=== PATIENT | female | born 1970 | race African-American/Black ===

== ENCOUNTER 2017-03-31 19:05 | Emergency (ER) | payer BC, OTHER ==
[2017-03-31 19:42] VITALS: BP 152/100; PULSE 74; TEMP 98.7; BMI 44.6
--- NOTE | 2017-03-31 19:43 | PDOC ---
Rapid Medical Evaluation Time Seen by Provider: 03/31/17 19:38 Medical Evaluation: Allergies Allergy/AdvReac Type Severity Reaction Status Date / Time No Known Allergies Allergy Verified 08/02/15 17:35 03/31/17 19:38 The patient presents with a chief complaint of: Fell today in the laundry mat approximately 45 minutes ago. R forearm pain, L wrist pain. No LOC, dizziness, head trauma. Did not take bp meds today. I have performed a brief in-person evaluation of this patient; Pertinent physical exam findings: TTP of the L wrist, hematoma to R forearm. I have ordered the following: Urine preg. L wrist x-ray The patient will proceed to the ED for further evaluation.
--- NOTE | 2017-03-31 20:47 | PDOC ---
History of Present Illness - General Chief Complaint: Injury Stated Complaint: FALL/INJURY Time Seen by Provider: 03/31/17 19:38 History Source: Patient Exam Limitations: No Limitations - History of Present Illness Initial Comments: 03/31/17 20:47 pt states she slipped on wet floor at the laundrymat today and injured her right forearm. no head trauma. pt has bruise to right forearm. Occurred: reports: this afternoon Severity: reports: mild Pain Location: reports: upper extremity (right) Past History - Past Medical History Allergies/Adverse Reactions: Allergies Allergy/AdvReac Type Severity Reaction Status Date / Time No Known Allergies Allergy Verified 03/31/17 19:42 Home Medications: Ambulatory Orders Amlodipine Besylate 10 mg PO ASDIR 03/31/17 Losartan/Hydrochlorothiazide [Losartan-Hctz 100-25 mg Tab] 1 each PO ASDIR 03/31 Potassium Chloride 20 meq PO ASDIR 03/31/17 COPD: No HTN: Yes - Surgical History Cholecystectomy: Yes - Suicide/Smoking/Psychosocial Hx Smoking History: Never smoked Have you smoked in the past 12 months: No Information on smoking cessation initiated: No Hx Alcohol Use: No Drug/Substance Use Hx: No Substance Use Type: None Trauma Specific PMHX - Complaint Specific PMHX Arthritis: No Back Injury: No Neck Injury: No Hx Sacro Iliac Joint Dysfunction: No Review of Systems - Review of Systems Able to Perform ROS?: Yes Is the patient limited Czech proficient: No Constitutional: No: Symptoms Reported HEENTM: No: Symptoms Reported Respiratory: No: Symptoms reported Cardiac (ROS): No: Symptoms Reported ABD/GI: No: Symptoms Reported : No: Symptoms Reported Musculoskeletal: Yes: Symptoms Reported *Physical Exam - Vital Signs Last Vital Signs Temp Pulse Resp BP Pulse Ox 98.7 F 74 18 152/100 99 03/31/17 19:38 03/31/17 19:38 03/31/17 19:38 03/31/17 19:38 03/31/17 19:38 - Physical Exam General Appearance: Yes: Nourished, Appropriately Dressed HEENT: positive: EOMI, ATUL Musculoskeletal: positive: Normal Inspection Extremity: positive: Normal Capillary Refill, Tender (right forearm , no bony tenderness, soft tissue swelling ), Swelling (3cm bruise to forearm ) Integumentary: positive: Normal Color, Dry Neurologic: positive: Normal Response, Motor Strength 5/5 Medical Decision Making - Medical Decision Making 03/31/17 20:49 cc: right forearm contusion after slip and fall xrays ordered from E pt has FROM to the upper extremities without limitations nv intact xrays are negative for fracture will dc home , pt asking for a note to be out of work tomorrow *DC/Admit/Observation/Transfer Diagnosis at time of Disposition: Arm contusion Qualifiers: Encounter type: initial encounter Laterality: right Qualified Code(s): S40.021A - Contusion of right upper arm, initial encounter - Discharge Dispostion Disposition: HOME - Referrals Referrals: Maria Del Rosario Quiñones [Primary Care Provider] - - Patient Instructions Additional Instructions: apply ice every 2hrs for 15-20 minutes take motrin or aleve as directed for pain follow with the orthopedist if pain worsens or any other concerns - Post Discharge Activity Forms/Work/School Notes: Back to Work
== END 2017-03-31 20:56 | disposition home or self-care (01) ==
LOC: JERFT 19:05
DX: S50.11XA Contusion of right forearm, initial encounter (principal); W01.0XXA Fall on same level from slipping, tripping and stumbling without subsequent striking against object, initial encounter; Y93.E2 Activity, laundry; Y92.59 Other trade areas as the place of occurrence of the external cause; Y99.8 Other external cause status; I10 Essential (primary) hypertension
CPT/HCPCS: 73090-TC-RT; 73110-TC-LT; 73110-TC-RT; 73130-TC-LT; 73130-TC-RT; 99282-25

== ENCOUNTER 2018-05-02 20:38 | Emergency (ER) | payer BC, OTHER ==
[2018-05-02 20:48] VITALS: BP 112/83; PULSE 84; TEMP 99; BMI 43.2
--- NOTE | 2018-05-02 21:00 | PDOC ---
History of Present Illness - General Chief Complaint: Palpitations Stated Complaint: SHORTNESS OF BREATH Time Seen by Provider: 05/02/18 20:52 History Source: Patient Exam Limitations: No Limitations - History of Present Illness Initial Comments: 47 yo F w a pmh of HTN presents to the ER after 1 day of palpitations. She was sitting down watching a cartoon show earlier today when the palpitations began and they were associated with mild SOB. She said it lasted for a few minutes and was not associated with any chest pain, nausea, vomiting, or diaphoresis. She states that she takes a potassium pill every day and usually uses an inhaler before taking it but today she didn't. She also endorses occasional dizziness and nausea possibly related to a smoothie drink regimen. She denies any recent fevers, chills, infections, headache, neck pain, blurry vision, chest pain, abdominal pain, dysuria, frequency, urgency, or leg pain. PCP: Maria Del Rosario Quiñones PSH: Left wrist cyst removal, tubal ligation, . Allergies: NKA, NKDA Social Hx: recreational alcohol usage. Denies smoking or other substance usage. Past History - Past Medical History Allergies/Adverse Reactions: Allergies Allergy/AdvReac Type Severity Reaction Status Date / Time No Known Allergies Allergy Verified 03/31/17 19:42 Home Medications: Ambulatory Orders Amlodipine Besylate 10 mg PO ASDIR 03/31/17 Losartan/Hydrochlorothiazide [Losartan-Hctz 100-25 mg Tab] 1 each PO ASDIR 03/31 Potassium Chloride 20 meq PO ASDIR 03/31/17 COPD: No HTN: Yes - Surgical History Cholecystectomy: Yes - Suicide/Smoking/Psychosocial Hx Smoking History: Never smoked Have you smoked in the past 12 months: No Information on smoking cessation initiated: No Hx Alcohol Use: No Drug/Substance Use Hx: No Substance Use Type: None Review of Systems - Review of Systems Able to Perform ROS?: Yes Constitutional: No: Diaphoresis, Fever, Malaise HEENTM: No: Blurred Vision Respiratory: Yes: Shortness of Breath. No: Cough, Orthopnea, SOB with Exertion , SOB at Rest, Stridor, Wheezing, Productive cough Cardiac (ROS): Yes: Palpitations. No: Chest Pain, Edema, Irregular Heart Rate, Lightheadedness, Syncope, Chest Tightness ABD/GI: Yes: Nausea. No: Abdominal Distended, Abd. Pain w/ defecation, Blood Streaked Bowels, Constipated, Diarrhea, Poor Appetite, Poor Fluid Intake : No: Burning, Dysuria, Discharge, Frequency, Flank Pain, Hematuria, Incontinence Musculoskeletal: No: Back Pain, Gout, Joint Pain, Joint Swelling Integumentary: No: Bruising, Change in Color Neurological: No: Headache, Numbness, Paresthesia, Pre-Existing Deficit, Tingling Psychiatric: No: Frequent Crying, Stressors, Sleep Pattern Change Endocrine: No: Excessive Sweating, Flushing Hematologic/Lymphatic: No: Anemia, Blood Clots *Physical Exam - Vital Signs Last Vital Signs Temp Pulse Resp BP Pulse Ox 99 F 84 20 112/83 98 05/02/18 20:46 05/02/18 20:46 05/02/18 20:46 05/02/18 20:46 05/02/18 20:46 - Physical Exam General Appearance: Yes: Nourished, Appropriately Dressed, Obese. No: Apparent Distress HEENT: positive: EOMI, ATUL, Normal ENT Inspection, Normal Voice Neck: positive: Trachea midline, Supple. negative: Tender, Rigid Respiratory/Chest: positive: Lungs Clear, Normal Breath Sounds. negative: Chest Tender, Respiratory Distress, Accessory Muscle Use Cardiovascular: positive: Regular Rhythm, Regular Rate, S1, S2. negative: Edema , JVD, Gallop/S3, Gallop/S4, Irregularly Irregular Vascular Pulses: Dorsalis-Pedis (R): 2+, Doralis-Pedis (L): 2+ Gastrointestinal/Abdominal: positive: Normal Bowel Sounds, Soft. negative: Tender, Guarding, Rebound, Tenderness Rectal Exam: positive: deferred Lymphatic: negative: Adenopathy Musculoskeletal: positive: Normal Inspection. negative: CVA Tenderness Extremity: positive: Normal Capillary Refill, Normal Inspection, Normal Range of Motion Integumentary: positive: Normal Color, Dry, Warm Neurologic: positive: batch freezer II-XII NML intact, Fully Oriented, Alert, Normal Mood/ Affect, Normal Response Moderate Sedation - Procedure Monitoring Vital Signs: Procedure Monitoring Vital Signs Temperature 99 F 05/02/18 20:46 Pulse Rate 84 05/02/18 20:46 Respiratory Rate 20 05/02/18 20:46 Blood Pressure 112/83 05/02/18 20:46 O2 Sat by Pulse Oximetry (%) 98 05/02/18 20:46 ED Treatment Course - LABORATORY CBC & Chemistry Diagram: 05/02/18 21:12 05/02/18 21:12 - ADDITIONAL ORDERS Additional order review: Laboratory Results 05/02/18 21:12 Sodium 139 Potassium 3.2 L Chloride 104 Carbon Dioxide 30 Anion Gap 5 L BUN 12 Creatinine 0.7 Creat Clearance w eGFR > 60 Random Glucose 117 H Calcium 9.3 Magnesium 1.9 Total Bilirubin 0.3 AST 12 L ALT 28 Alkaline Phosphatase 95 Creatine Kinase 92 Troponin I < 0.02 Total Protein 7.1 Albumin 3.8 05/02/18 21:12 RBC 4.46 MCV 78.2 L MCHC 33.1 RDW 17.9 H MPV 8.5 Neutrophils % 47.7 Lymphocytes % 38.4 Monocytes % 8.7 Eosinophils % 4.2 Basophils % 1.0 - RADIOLOGY Radiology Studies Ordered: Category Date Time Status CHEST PA & LAT [RAD] Stat Radiology 05/02/18 21:00 Taken - Medications Given in the ED: ED Medications Discontinued Medications Generic Name Dose Route Start Last Admin Trade Name Naderq PRN Reason Stop Dose Admin Potassium Chloride 40 meq 05/02/18 22:08 05/02/18 22:15 K-Dur - PO 05/02/18 22:09 40 meq ONCE ONE Administration Medical Decision Making - Medical Decision Making 47 yo F w a pmh of HTN presents to the ER after 1 day of palpitations. She was sitting down watching a cartoon show earlier today when the palpitations began and they were associated with mild SOB. She said it lasted for a few minutes and was not associated with any chest pain, nausea, vomiting, or diaphoresis. She states that she takes a potassium pill every day and usually uses an inhaler before taking it but today she didn't. DDx IBNLT: ACS/NE, arrhythmia, electrolye abnormality, PNA, pneumothorax Plan: Labs, EKG, CXR, re-assess. EKG normal sinus CXR unremarkable Potassium mildly decreased at 3.2 Labs significant for low potassium which might be the reason she is experiencing palpitations. *DC/Admit/Observation/Transfer Diagnosis at time of Disposition: Palpitations, Hypokalemia - Discharge Dispostion Disposition: HOME Condition at time of disposition: Improved Decision to Admit order: No - Referrals Referrals: Maria Del Rosario Quiñones [Primary Care Provider] - - Patient Instructions Printed Discharge Instructions: DI for Palpitations, DI for Hypokalemia Additional Instructions: You came into the ER with palpitations. We did an electrocardiogram a chest x- ray and looked at your blood. You did not have a heart attack. We noticed that your potassium level is mildly low at 3.2 which is likely what is causing you to have palpitations. This is called hypokalemia - please see attached handout for further explanation. Please make sure to take your potassium medication as prescribed. It is important that you schedule a follow up appointment with your primary care doctor in the next 3 to 5 days to make sure you are getting better and being taken care of. Come back to the ER if your pain worsens, or you have any other new or worsening concerns. Thank you for coming to the [facility] ER. We hope you feel better soon! Print Language: FRISIAN - Post Discharge Activity
[2018-05-02 21:17] LABS: EOS % 4.2 % (0-4.5); HEMATOCRIT 34.9 % (32.4-45.2); HEMOGLOBIN 11.6 GM/dL (10.7-15.3); LYMPH % 38.4 % (8-40); MCH 25.9 pg (25.7-33.7); MCHC 33.1 g/dl (32.0-36.0); MEAN CELL VOLUME 78.2 fl (80-96); MEAN PLT VOLUME 8.5 fl (7.5-11.1); MONO % 8.7 % (3.8-10.2); NEUT % 47.7 % (42.8-82.8); PLATELET COUNT 271 K/MM3 (134-434); RBC 4.46 M/mm3 (3.60-5.2); RDW 17.9 % (11.6-15.6); WHITE BLOOD COUNT 6.1 K/mm3 (4.0-10.0)
--- NOTE | 2018-05-02 21:31 | PDOC ---
Attending Attestation - HPI HPI: This patient is a 47 year old female with PMHx of HTN who presents with palpitations that began while watching tv earlier. She states that her palpitations last for a few minutes that comes and goes. She denies any chest pain at the time but does note some shortness of breath at the time. She states that she took her Losartan and Amlodipine but did not take her inhaler. She reports 2 days of nausea. She denies any vomiting, diaphoresis. She denies any fever, chills, recent infections, lower extremity edema. PCP: Maria Del Rosario Null) 05/02/18 22:05 - Physicial Exam PE: GENERAL: The patient is in no acute distress. HEAD: Normal with no signs of trauma. EYES: PERRLA, EOMI, sclera anicteric, conjunctiva clear. LUNGS: Breath sounds equal, clear to auscultation bilaterally. No wheezes, and no crackles. HEART:Regular rate and rhythm, normal S1 and S2 without murmur, rub or gallop. ABDOMEN: Soft, nontender, normoactive bowel sounds. No guarding, no rebound. EXTREMITIES: Normal range of motion, no edema. No clubbing or cyanosis. No erythema, or tenderness. NEUROLOGICAL: Cranial nerves II through XII grossly intact. Normal speech. No focal neurological deficits. MUSCULOSKELETAL: Back nontender to palpation, no CVA tenderness SKIN: Warm, Dry, normal turgor, no rashes or lesions noted. <Heather Carrasco - Last Filed: 05/02/18 22:05> - Resident Resident Name: Gain Peñaloza - ED Attending Attestation I have performed the following: I have examined & evaluated the patient, The case was reviewed & discussed with the resident, I agree w/resident's findings & plan, Exceptions are as noted - Medical Decision Making 05/02/18 21:31 Pt presents with a complaint of palpitations which were intermittent since this afternoon She denies prior episodes like this Had chest pain when this started No recent travel No know thyroid disorder Pt has recently changed her diet (doing the green smoothie challenge) EKG - NSR rate of 77 bpm, axis nml, intervals nml, no st elevation or depression , t waves upright 05/02/18 22:15 Laboratory Tests 05/02/18 05/02/18 21:12 21:12 WBC 6.1 Hgb 11.6 Hct 34.9 Plt Count 271 BUN 12 Creatinine 0.7 Creatine Kinase 92 Troponin I < 0.02 05/05/18 07:51 Pt stable in the ER We have discussed following up with her PMD and Cardiology for possible Holter monitor Return to the ER for any other concerns or complaints <LeoMulu - Last Filed: 05/05/18 08:01> *DC/Admit/Observation/Transfer <Heather Carrasco - Last Filed: 05/02/18 22:05> <LeoMulu - Last Filed: 05/05/18 08:01> Diagnosis at time of Disposition: Palpitations, Hypokalemia - Discharge Dispostion Disposition: HOME Condition at time of disposition: Improved - Referrals Referrals: Maria Del Rosario Quiñones [Primary Care Provider] - - Patient Instructions Printed Discharge Instructions: DI for Hypokalemia, DI for Palpitations Additional Instructions: You came into the ER with palpitations. We did an electrocardiogram a chest x- ray and looked at your blood. You did not have a heart attack. We noticed that your potassium level is mildly low at 3.2 which is likely what is causing you to have palpitations. This is called hypokalemia - please see attached handout for further explanation. Please make sure to take your potassium medication as prescribed. It is important that you schedule a follow up appointment with your primary care doctor in the next 3 to 5 days to make sure you are getting better and being taken care of. Come back to the ER if your pain worsens, or you have any other new or worsening concerns. Thank you for coming to the [facility] ER. We hope you feel better soon! Print Language: ISRAELI - Post Discharge Activity
[2018-05-02 21:53] LABS: ALBUMIN 3.8 g/dl (3.4-5.0); ALK PHOS 95 U/L (45-117); ANION GAP 5 MMOL/L (8-16); BILIRUBIN,TOTAL 0.3 mg/dL (0.2-1); BLOOD UREA NITROGEN 12 mg/dL (7-18); CALCIUM 9.3 mg/dL (8.5-10.1); CHLORIDE 104 mmol/L (98-107); CO2 30 mmol/L (21-32); CREATININE 0.7 mg/dL (0.55-1.3); GLUCOSE,RANDOM 117 mg/dL (74-106); MAGNESIUM 1.9 mg/dL (1.8-2.4); POTASSIUM 3.2 mmol/L (3.5-5.1); SGOT/AST 12 U/L (15-37); SGPT/ALT 28 U/L (13-61); SODIUM 139 mmol/L (136-145); TOT PROT 7.1 g/dl (6.4-8.2)
[2018-05-02] MEDS ORDERED: POTASSIUM CHLORIDE TABS 20 MEQ TABLET.ER (FP) PO ONE ×2 (22:08→22:25)
--- NOTE | 2018-05-03 15:38 | EKG ---
Test Reason : Blood Pressure : / mmHG Vent. Rate : 077 BPM Atrial Rate : 077 BPM P-R Int : 150 ms QRS Dur : 094 ms QT Int : 412 ms P-R-T Axes : 032 033 006 degrees QTc Int : 466 ms NORMAL SINUS RHYTHM SEPTAL INFARCT , AGE UNDETERMINED ABNORMAL ECG WHEN COMPARED WITH ECG OF 02-AUG-2015 17:36, NO SIGNIFICANT CHANGE WAS FOUND Confirmed by ANNELISE MORAN MD ([id number]) on 05/03/2018 3:38:38 PM Referred By: Confirmed By:ANNELISE MORAN MD
== END 2018-05-02 23:28 | disposition home or self-care (01) ==
LOC: JER 20:38
DX: R00.2 Palpitations (principal); E87.6 Hypokalemia
CPT/HCPCS: 36415; 71046-TC-FY; 80053; 82550; 83735; 84443; 84484; 85025; 93005; 93010; 99283-25